=== PATIENT | male | born 1980 | race Caucasian/White ===

== ENCOUNTER 2016-12-01 13:23 | Emergency (ER) | payer SELFPAY ==
[~2016-12-01] VITALS: Ht 180.3 cm; Wt 79.5 kg
[2016-12-01 13:29] VITALS: BP 109/73; PULSE 109; RESP 18; TEMP 98.6; O2SAT 98
[2016-12-01] MEDS ORDERED: TETANUS/DIPHTHERIA TOXOID ADULT 0.5 ML VIAL IM ONE (13:45)
[2016-12-01] MEDS ORDERED: HYDROmorphone HCL PF 1 MG/ML VIAL IM ONE (13:45)
[2016-12-01] MEDS ORDERED: LIDOCAINE HCL 2% 20 ML VIAL INFIL ONE (13:45)
--- NOTE | 2016-12-01 13:49 | PD ---
HPI Chief Complaint: Injury Time Seen by Provider: 13:34 Travel History International Travel<30 days: No Contact w/Intl Traveler<30days: No Traveled to known affect area: No History of Present Illness HPI This is a 36-year-old male who presents to the emergency department having been chain sawing edges when his pants got caught in the chain saw and he sustained a laceration to his left leg. Patient doesn't remember when his last tetanus shot is. He has moderate severity pain in the left leg, constant, with no numbness or weakness. No other injuries. [facility] Past Medical History Medical History: Denies Significant Hx Tetanus Vaccination: > 5 Years Influenza Vaccination: No Past Surgical History Surgical History: No Previous Surgery Social History Alcohol Use: No Tobacco Use: Yes (12/04 PPD) Substance Use: No Allergies-Medications (Allergen,Severity, Reaction): Coded Allergies: No Known Allergies (Unverified , 12/01/16) Reported Meds & Prescriptions Reported Meds & Active Scripts Active No Active Prescriptions or Reported Medications Review of Systems Except as stated in HPI: all other systems reviewed are Neg Physical Exam Narrative GENERAL: Well-appearing, no acute distress, nontoxic SKIN: 10 cm deep laceration along the lateral aspect of the left thigh through the fascia with some laceration to the underlying muscle belly. No vascular structures visualized. Vascular: 2+ left DP pulse with normal capillary refill. HEAD: Atraumatic. Normocephalic. ENT: No nasal bleeding or discharge. Moist mucous membranes MUSCULOSKELETAL: No obvious deformities. No clubbing. No cyanosis. No edema. NEUROLOGICAL: Awake and alert. No obvious cranial nerve deficits. Motor grossly within normal limits. Normal speech. PSYCHIATRIC: Appropriate mood and affect; insight and judgment normal. Data Data Last Documented VS Vital Signs Date Time Temp Pulse Resp B/P Pulse Ox O2 Delivery O2 Flow Rate FiO2 12/01/16 13:29 98.6 109 18 109/73 98 Orders Tetanus/Diphtheria Tox Adult (Tetanus/Di (12/01/16 13:45) Lidocaine 2% Inj (Xylocaine 2% Inj) (12/01/16 13:45) Hydromorphone Pf Inj (Dilaudid Pf Inj) (12/01/16 13:45) Lidocaine 2% Inj (Xylocaine 2% Inj) (12/01/16 14:00) MDM Medical Decision Making Medical Screen Exam Complete: Yes Emergency Medical Condition: Yes Differential Diagnosis Laceration, vascular injury Narrative Course This is a 34-year-old male who presents to the emergency department with a laceration to his left leg following a chainsaw injury. He was given a tetanus shot. The wound was copiously irrigated and repaired by me. It was a complex repair. Patient tolerated the procedure well. He will be discharged home with wound care and antibiotics given. Procedures Procedure Narrative LACERATION LOCATION: Lateral left thigh LENGTH: 10 cm NUMBER OF STITCHES/SHEYLA: 16 REPAIR: The area of the laceration was sterilely draped. The laceration was infiltrated with 10 cc of 1% lidocaine the wound was copiously irrigated and explored without evidence of foreign body, tendon injury or neurovascular injury. The wound was closed using 10 4-0 Vicryl sutures and 6 3-0 nylon vertical mattress sutures. This was a 3 layer repair. A sterile dressing was applied. The patient was advised to keep the dressing clean and dry. Patient tolerated the procedure well. Diagnosis Primary Impression: Contact with chainsaw as cause of accidental injury Additional Impression: Laceration Patient Instructions: General Instructions Additional Instructions: If you develop fevers, redness, swelling, or discharge from your wound return to the emergency room. Keep your wound dry for 24 hours. After that time, wash gently with warm soap and water. Do not use peroxide. Do not soak in baths or go swimming. Have your sutures removed in 14 days. Med/Other Pt SpecificInfo: Prescription(s) given Scripts Oxycodone-Acetaminophen (Percocet)5-325 mg Tab1 Tab PO Q6H PRN (PAIN) #12 TAB Ref 0 Prov:Kathryn Ortiz MD 12/01/16 Cephalexin (Keflex)500 Mg Cyt097 Mg PO Q12H 7 Days Ref 0 Prov:Kathryn Ortiz MD 12/01/16 Disposition: 01 DISCHARGE HOME Condition: Stable Kathryn Ortiz MD Dec 01, 2016 13:49
[2016-12-01] MEDS ORDERED: LIDOCAINE HCL 2% 50 ML VIAL INFIL ONE (14:00)
[2016-12-01] MEDS ORDERED: CEPH-460 PO (15:04)
[2016-12-01] MEDS ORDERED: PERC5TAB12 PO (15:04)
[2016-12-01 15:25] VITALS: BP 146/76
== END 2016-12-01 15:38 | disposition home or self-care (01) ==
LOC: PHED 13:23
DX: S71.112A Laceration without foreign body, left thigh, initial encounter (principal); F17.200 Nicotine dependence, unspecified, uncomplicated; Z23 Encounter for immunization; W29.3XXA Contact with powered garden and outdoor hand tools and machinery, initial encounter
CPT/HCPCS: 13121; 13122; 90471; 90714; 96372; 99283; E0113; J1170

== ENCOUNTER 2017-06-13 15:06 | Inpatient (IN) | payer SELFPAY ==
[~2017-06-13] VITALS: Ht 180.3 cm; Wt 82.0 kg
[~2017-06-13 15:06] MED LIST: CEPH-460 PO; PERC5TAB12 PO
[2017-06-13 15:25] VITALS: BP 120/67; PULSE 134; RESP 20; TEMP 99.6; O2SAT 94
--- NOTE | 2017-06-13 15:36 | PD ---
HPI Chief Complaint: Alcohol/Drug Intoxication Time Seen by Provider: 15:23 Travel History International Travel<30 days: No Contact w/Intl Traveler<30days: No Traveled to known affect area: No History of Present Illness HPI This patient had been clean of his heroin addiction for while but relapsed today and injected himself with heroin. His parents noticed that he was acting out and called paramedics who brought him in. He did not require any Narcan. He did not have syncope. He denies intent to harm himself. No suicidal thought or depression. At this point he feels a bit drowsy but otherwise well. No alleviating factors. Duration 3 hours. Severity is moderate PFSH Past Medical History ?: Not Social History Alcohol Use: No Tobacco Use: Yes (12/04 PPD) Substance Use: No Allergies-Medications (Allergen,Severity, Reaction): Coded Allergies: No Known Allergies (Unverified , 12/01/16) Reported Meds & Prescriptions Reported Meds & Active Scripts Active Percocet (Oxycodone-Acetaminophen) 5-325 mg Tab 1 Tab PO Q6H PRN Keflex (Cephalexin) 500 Mg Cap 500 Mg PO Q12H 7 Days Review of Systems General / Constitutional: No: Fever Eyes: No: Visual changes HENT: No: Headaches Cardiovascular: Positive: Tachycardia, No: Chest Pain or Discomfort Respiratory: No: Shortness of Breath Gastrointestinal: No: Abdominal Pain Genitourinary: No: Dysuria Musculoskeletal: No: Pain Skin: No Rash Neurologic: Positive: Change in Mentation, No: Weakness Psychiatric: Positive: Substance Abuse, No: Depression Endocrine: No: Polydipsia Hematologic/Lymphatic: No: Easy Bruising Physical Exam Narrative GENERAL: Well-nourished, well-developed patient in no apparent distress. SKIN: Focused skin assessment reveals no rash and nodules. Skin is Warm and dry. HEAD: Atraumatic. Normocephalic. EYES: Pupils equal and round. No scleral icterus. No injection or drainage. ENT: No nasal bleeding or discharge. Mucous membranes pink and moist. NECK: Trachea midline. No JVD. CARDIOVASCULAR: Regular rate and rhythm. No murmur appreciated. Tachycardic 125 RESPIRATORY: No accessory muscle use. Clear to auscultation. Breath sounds equal bilaterally. GASTROINTESTINAL: Abdomen soft, non-tender, nondistended. Hepatic and splenic margins not palpable. MUSCULOSKELETAL: No obvious deformities. No clubbing. No cyanosis. No edema. NEUROLOGICAL: Awake and alert. No obvious cranial nerve deficits. Motor grossly within normal limits. Normal speech. PSYCHIATRIC: Appropriate mood and affect; insight and judgment poor . Data Data Last Documented VS Vital Signs Date Time Temp Pulse Resp B/P (MAP) Pulse Ox O2 Delivery O2 Flow Rate FiO2 06/13/17 17:51 99.0 90 19 107/59 (75) 95 Room Air Orders Orders Iv Access Insert/Monitor (06/13/17 15:31) Complete Blood Count With Diff (06/13/17 15:31) Basic Metabolic Panel (Bmp) (06/13/17 15:31) Sodium Chlor 0.9% 1000 Ml Inj (Ns 1000 M (06/13/17 15:45) [employer] / Telemetry HERMINIA.Q8H (06/13/17 15:33) Blood Culture (06/13/17 17:28) Diet Regular Basic (06/13/17 Dinner) Admit Order (Ed Use Only) (06/13/17 17:56) Labs Laboratory Tests Test 06/13/17 15:00 06/13/17 15:20 White Blood Count 17.1 TH/MM3 Red Blood Count 4.32 MIL/MM3 Hemoglobin 12.8 GM/DL Hematocrit 38.1 % Mean Corpuscular Volume 88.2 FL Mean Corpuscular Hemoglobin 29.6 PG Mean Corpuscular Hemoglobin Concent 33.5 % Red Cell Distribution Width 13.2 % Platelet Count 437 TH/MM3 Mean Platelet Volume 7.7 FL Neutrophils (%) (Auto) 78.1 % Lymphocytes (%) (Auto) 12.7 % Monocytes (%) (Auto) 7.9 % Eosinophils (%) (Auto) 0.8 % Basophils (%) (Auto) 0.5 % Neutrophils # (Auto) 13.4 TH/MM3 Lymphocytes # (Auto) 2.2 TH/MM3 Monocytes # (Auto) 1.3 TH/MM3 Eosinophils # (Auto) 0.1 TH/MM3 Basophils # (Auto) 0.1 TH/MM3 CBC Comment DIFF FINAL Differential Comment Blood Urea Nitrogen 11 MG/DL Creatinine 2.08 MG/DL Random Glucose 119 MG/DL Calcium Level 8.9 MG/DL Sodium Level 139 MEQ/L Potassium Level 3.6 MEQ/L Chloride Level 103 MEQ/L Carbon Dioxide Level 27.0 MEQ/L Anion Gap 9 MEQ/L Estimat Glomerular Filtration Rate 37 ML/MIN MDM Medical Decision Making Medical Screen Exam Complete: Yes Emergency Medical Condition: Yes Medical Record Reviewed: Yes Differential Diagnosis IV drug abuse, overdose, dehydration Narrative Course I have reviewed the patient's electronic medical record. Patient was seen here once before for a laceration to the left leg Patient has poor/challenging IV access I placed a left external jugular IV I gave him a liter of normal saline IV bolus Extended cardiac monitoring shows sinus tachycardia in the 120s with normal blood pressure CBC shows leukocytosis of 17,000 Metabolic profile reasonably normal I have concern for endocarditis/sepsis in this patient with IV drug abuse and tachycardia and low-grade temperature and leukocytosis. I'm going to get him admitted to rule out these things. 2 sets of blood cultures ordered I will discuss with medical residents Diagnosis Primary Impression: Fever Qualified Codes: R50.9 - Fever, unspecified Additional Impressions: Tachycardia Leukocytosis Qualified Codes: D72.829 - Elevated white blood cell count, unspecified IV drug abuse Admitting Information Admitting Physician Requests: Admit Hernán Santacruz MD Jun 13, 2017 15:36
[2017-06-13] MEDS ORDERED: SODIUM CHLOR 0.9% 1000 ML INJ 1,000 ML IV ONE (15:45)
[2017-06-13 16:21] LABS: AUTOMATED NEUTROPHIL # 13.4 TH/MM3 (1.8-7.7); BASOPHIL # 0.1 TH/MM3 (0-0.2); BASOPHIL % 0.5 % (0.0-2.0); EOSINOPHIL # 0.1 TH/MM3 (0-0.4); EOSINOPHIL % 0.8 % (0.0-4.0); HEMATOCRIT 38.1 % (39.0-51.0); HEMO FLAGS DIFF FINAL; LYMPH % 12.7 % (9.0-44.0); LYMPHOCYTE # 2.2 TH/MM3 (1.0-4.8); MEAN CELL VOLUME 88.2 FL (80.0-100.0); MEAN CORPUSCULAR HEMOGLOBIN 29.6 PG (27.0-34.0); MEAN CORPUSCULAR HGB CONC 33.5 % (32.0-36.0); MONO % 7.9 % (0.0-8.0); NEUT % 78.1 % (16.0-70.0); PLATELET COUNT 437 TH/MM3 (150-450); RED BLOOD COUNT 4.32 MIL/MM3 (4.50-5.90); RED CELL DISTRIBUTION WIDTH 13.2 % (11.6-17.2); WHITE BLOOD COUNT 17.1 TH/MM3 (4.0-11.0)
[2017-06-13 16:36] LABS: POTASSIUM 3.6 MEQ/L (3.5-5.1)
[2017-06-13 17:51] VITALS: BP 107/59; PULSE 90; RESP 19; TEMP 99; O2SAT 95
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
[2017-06-13] MEDS ORDERED: NALOXONE HCL 0.4 MG/ML AMP IV PRN (19:00)
[2017-06-13] MEDS ORDERED: LORazepam 1 MG TAB PO PRN (19:00)
[2017-06-13] MEDS ORDERED: cloNIDine HCL 0.1 MG TAB PO PRN (19:00)
[2017-06-13] MEDS: MULTIVITAMINS/MINERALS THERAPEUTIC TAB PO SCH (19:00)
[2017-06-13] MEDS ORDERED: LORazepam 2 MG TAB PO PRN (19:00)
[2017-06-13] MEDS ORDERED: ONDANSETRON HCL 4 MG/2 ML VIAL IVP PRN (19:00)
[2017-06-13] MEDS ORDERED: ACETAMINOPHEN 325 MG TAB PO PRN (19:00)
[2017-06-13] MEDS ORDERED: FLUMAZENIL 0.5 MG/5 ML VIAL IV PUSH PRN (19:00)
[2017-06-13 19:34] LABS: ALCOHOL LESS THAN 3 MG/DL (0-5)
[2017-06-13 20:00] VITALS: BP 117/63; PULSE 77; RESP 17; O2SAT 95
[2017-06-13] MEDS: SODIUM CHLOR 0.9% 1000 ML INJ 1,000 ML IV SCH (20:03)
[2017-06-13] MEDS: THIAMINE HCL 100 MG TAB PO SCH (20:03)
[2017-06-13] MEDS: FOLIC ACID 1 MG TAB PO SCH (20:03)
[2017-06-13] MEDS: HEPARIN SODIUM - SQ 10,000 UNITS/ML VIAL SQ SCH (20:04)
[2017-06-13] MEDS ORDERED: PROMETHAZINE INJ 25 MG/ML VIAL IM PRN (20:15)
[2017-06-13] MEDS ORDERED: LOPERAMIDE HCL 2 MG CAP PO PRN (20:15)
[2017-06-13 21:23] VITALS: BP 116/59; PULSE 62; RESP 19; TEMP 98.4; O2SAT 96
[2017-06-14] VITALS (9 sets, daily range): BP systolic 107–116; BP diastolic 56–63; PULSE 47–68; RESP 18; TEMP 97.6–98.2; O2SAT 97–99
[2017-06-14] MEDS: SODIUM CHLOR 0.9% 1000 ML INJ 1,000 ML IV SCH ×3 (03:26→18:48)
[2017-06-14] MEDS: HEPARIN SODIUM - SQ 10,000 UNITS/ML VIAL SQ SCH ×3 (03:26→19:00)
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
--- NOTE | 2017-06-14 08:17 | HHI.DCPOC ---
Discharge Care Plan Diagnosis: (1) Heroin overdose (2) Observation for suspected infectious endocarditis (3) Sepsis (4) JUANCARLOS (acute kidney injury) Goals to Promote Your Health * To prevent worsening of your condition and complications * To maintain your health at the optimal level Directions to Meet Your Goals Take your medications as prescribed Follow your dietary instruction Follow activity as directed Keep your appointments as scheduled Take your immunizations and boosters as scheduled If your symptoms worsen call your PCP, if no PCP go to Urgent Care Center or Emergency Room Smoking is Dangerous to Your Health. Avoid second hand smoke Call the 24-hour hour crisis hotline for domestic abuse at Elise Fraire MD, R3 Jun 14, 2017 08:17
--- NOTE | 2017-06-14 08:21 | PD.PSY.CON ---
Provisional Diagnosis Admission Date Jun 13, 2017 at 17:58 Loris I. Substance-induced mood disorder, Opiate use disorder Loris II. Deferred Loris III. Heroine overdose Loris IV. Recently released from intermediate, unemployed Loris V. 56 History of Present Illness Service Psychiatry Consult Requested By Reason for Consult Potential suicidal attempt Primary Care Physician No Primary Care Physician HPI The patient is a 36-year-old man, domiciled with parents, unemployed, single, without any previous psychiatric history, no previous suicidal attempts , no previous psychiatric hospitalizations, opiate use disorder, IV daily Dilaudid and heroin, history of rehabilitation programs in the past, he was in methadone 30 mg in the past, no significant medical history, that presents with an acute IV heroine overdose in the setting of tachycardia, leukocytosis, and elevated creatinine (baseline creatinine unknown). Clinical signs on admission are concerning for early sepsis and endocarditis. He would be admitted to rule out endocarditis and acute withdrawal symptoms will be managed supportively. Patient consulted to psychiatry for potential overdose and management of anxiety. Psychiatric evaluation today patient is calm, cooperative and pleasant. Patient is seen In the observational area of the ER. Patient explains that he was just released from intermediate couple days ago "my tolerance for opiates was very low and use heroine with the intention to feel better, but now with the intention to ". Patient explains that once he was released from intermediate, he had a lot of plans, he wanted to find a job, to quit using drugs, if possible to start a methadone program again. Patient says that he wants to reform his life and he doesn't want to go back to intermediate. He appreciates what his parents are doing for him "I want to mess again". At this moment patient reports good mood, he denies anhedonia, he denies hopelessness, he denies helplessness, he denies worthlessness, he denies decreased concentration, he denies decreased energy, he denies suicidal and homicidal ideation. He denies visual and auditory hallucinations. He denies history, no gross cognitive impairment present, no attention deficit. Patient is logical, coherent and relevant, no paranoia, no delusions of reference, no agitation or aggressive behavior present. At this moment the patient does not report symptoms of heroin withdrawal. Patient denies the use of other illicit drugs, he denies the use of alcohol.. Review of Systems Constitutional: DENIES: Diaphoretic episodes, Fatigue, Fever, Weight gain, Weight loss, Chills, Dizziness, Change in appetite, Night Sweats Endocrine: DENIES: Heat/cold intolerance, Polydipsia, Polyuria, Polyphagia Eyes: DENIES: Blurred vision, Diplopia, Eye inflammation, Eye pain, Vision loss , Photosensitivity, Double Vision Ears, nose, mouth, throat: DENIES: Tinnitus, Hearing loss, Vertigo, Nasal discharge, Oral lesions, Throat pain, Hoarseness, Ear Pain, Running Nose, Epistaxis, Sinus Pain, Toothache, Odynophagia Cardiovascular: DENIES: Chest pain, Palpitations, Syncope, Dyspnea on Exertion , PND, Lower Extremity Edema, Orthopnea, Claudication Gastrointestinal: DENIES: Abdominal pain, Black stools, Bloody stools, Constipation, Diarrhea, Nausea, Vomiting, Difficulty Swallowing, Anorexia Musculoskeletal: DENIES: Joint pain, Muscle aches, Stiffness, Joint Swelling, Back pain, Neck pain Integumentary: DENIES: Abnormal pigmentation, Nail changes, Pruritus, Rash Hematologic/lymphatic: DENIES: Bruising, Lymphadenopathy Immunologic/allergic: DENIES: Eczema, Urticaria Neurologic: DENIES: Abnormal gait, Headache, Localized weakness, Paresthesias, Seizures, Speech Problems, Tremor, Poor Balance Psychiatric: DENIES: Anxiety, Confusion, Mood changes, Depression, Hallucinations, Agitation, Suicidal Ideation, Homicidal Ideation, Delusions Past Family Social History Coded Allergies: No Known Allergies (Unverified , 12/01/16) Discontinued Scripts Oxycodone-Acetaminophen (Percocet) 5-325 mg Tab, 1 TAB PO Q6H Y for PAIN, #12 TAB 0 Refills Prov:Kathryn Ortiz MD 12/01/16 Cephalexin (Keflex) 500 Mg Cap, 500 MG PO Q12H for Infection for 7 Days, CAP 0 Refills Prov:Kathryn Ortiz MD 12/01/16 Current Medications Medications (Trade) Dose Ordered Sig/Inge Route Start Time Stop Time Status Last Admin Sodium Chloride 1,000 ml @ 125 mls/hr Q8H IV 06/13/17 18:48 06/14/17 03:26 (Tylenol) 650 mg Q4H PRN PO 06/13/17 19:00 (Heparin Inj) 5,000 units Q8H SQ 06/13/17 19:00 06/14/17 03:26 (Narcan Inj) 0.4 mg UNSCH PRN IV 06/13/17 19:00 (Romazicon Inj) 0.2 mg Q1M PRN IV PUSH 06/13/17 19:00 (Ativan) 1 mg Q4H PRN PO 06/13/17 19:00 (Ativan) 2 mg Q2H PRN PO 06/13/17 19:00 (Folate) 1 mg DAILY PO 06/13/17 19:00 06/18/17 18:59 06/13/17 20:03 (Vitamin B1) 100 mg DAILY PO 06/13/17 19:00 06/13/17 20:03 (Theragran M Tab) 1 tab DAILY PO 06/13/17 19:00 06/18/17 18:59 (Catapres) 0.1 mg Q6H PRN PO 06/13/17 19:00 (Phenergan Inj) 25 mg Q6H PRN IM 06/13/17 20:15 (Imodium) 2 mg Q4H PRN PO 06/13/17 20:15 Family History Patient denies family psychiatric history Social History Patient was born and raised in [facility], he lives with his parents in the time,, he has no kids, unemployed, recently released from [facility] after 2 months incarceration due to "drugs"patient's highest level of education is high school. Patient's Strengths (min. 2) Verbal communication, contemplation state, good motivation Physical Exam A physical exam, no tremors, no EPS, no stiffness, no withdrawal symptoms, no gait disturbances, no skin visible irvin, no pupillaries abnormalities Vital Signs Vital Signs Date Time Temp Pulse Resp B/P (MAP) Pulse Ox O2 Delivery O2 Flow Rate FiO2 06/14/17 07:49 48 06/14/17 03:16 98.2 18 111/56 (74) 97 06/13/17 20:00 Room Air Lab Results Test 06/13/17 15:00 06/13/17 15:20 06/14/17 00:25 White Blood Count 17.1 TH/MM3 Red Blood Count 4.32 MIL/MM3 Hemoglobin 12.8 GM/DL Hematocrit 38.1 % Mean Corpuscular Volume 88.2 FL Mean Corpuscular Hemoglobin 29.6 PG Mean Corpuscular Hemoglobin Concent 33.5 % Red Cell Distribution Width 13.2 % Platelet Count 437 TH/MM3 Mean Platelet Volume 7.7 FL Neutrophils (%) (Auto) 78.1 % Lymphocytes (%) (Auto) 12.7 % Monocytes (%) (Auto) 7.9 % Eosinophils (%) (Auto) 0.8 % Basophils (%) (Auto) 0.5 % Neutrophils # (Auto) 13.4 TH/MM3 Lymphocytes # (Auto) 2.2 TH/MM3 Monocytes # (Auto) 1.3 TH/MM3 Eosinophils # (Auto) 0.1 TH/MM3 Basophils # (Auto) 0.1 TH/MM3 CBC Comment DIFF FINAL Differential Comment Blood Urea Nitrogen 11 MG/DL Creatinine 2.08 MG/DL Random Glucose 119 MG/DL Calcium Level 8.9 MG/DL Sodium Level 139 MEQ/L Potassium Level 3.6 MEQ/L Chloride Level 103 MEQ/L Carbon Dioxide Level 27.0 MEQ/L Anion Gap 9 MEQ/L Estimat Glomerular Filtration Rate 37 ML/MIN Phosphorus Level 4.0 MG/DL Magnesium Level 2.0 MG/DL Salicylates Level LESS THAN 1.7 MG/DL Acetaminophen Level LESS THAN 2.0 MCG/ML Ethyl Alcohol Level LESS THAN 3 MG/DL Lactic Acid Level 1.8 mmol/L Date/Time Source Procedure Growth Status 06/13/17 17:50 Blood Peripheral Aerobic Blood Culture Pending Received 06/13/17 17:50 Blood Peripheral Anaerobic Blood Culture Pending Received Mental Status Examination Appearance man, regular street clothing, good hygiene, age appearing, he is calm , cooperative and pleasant Speech: Unremarkable Orientation: x3 Memory: Unremarkable Thought Process: Logical Thought Content: Unremarkable Language Good grammar, good diction, Fund of Knowledge Adequate for level of education Hallucination Type: None Suicidal Ideation: No Previous Suicide Attempts: No Homicidal Ideation: No Previous Homicide Attempts: No Insight: Good Affect: Good Mood: Appropriate Motor Activity: Normal gait Assessment & Plan Problem List: (1) Opioid abuse with intoxication ICD Codes: F11.129 - Opioid abuse with intoxication, unspecified Assessment & Plan: On psychiatric evaluation today patient is found calm, cooperative, logical, coherent and relevant. Patient does not present any evidence of acute, significant or concerning symptomatology of depression, anxiety, presley or psychosis. The patient denies suicidal and homicidal ideation , he denies visual and auditory hallucinations. He denies symptomatology of withdrawal at this moment. Patient seems to be motivated to engage in a methadone program or might consider other are tentative or rehabilitation. He has a for insight of his drug use and is in contemplation state. Extensive psychoeducation, supportive motivation provided. He does not meet criteria for psychiatric admission at this moment. Would treat opiate withdrawal symptomatically: Clonidine 0.01-0.02 every 8 hours when necessary irritability/ autonomic instability, Benadryl 25-50 mg by mouth every 8 hours for lacrimation and skin pruritus. Zofran/Reglan for nausea, loperamide for diarrhea. Might consider a low dose of long-acting benzodiazepine, such as clonazepam 0.5 mg 3 times a day, to control anxiety. Gabapentin 300 mg 3 times a day is another healthy alternatives. Consult appreciated. Assessment & Plan Estimated LOS: Kaushik Raman MD Jun 14, 2017 08:20
[2017-06-14] MEDS: MULTIVITAMINS/MINERALS THERAPEUTIC TAB PO SCH (08:33)
[2017-06-14] MEDS: FOLIC ACID 1 MG TAB PO SCH (08:33)
[2017-06-14] MEDS: THIAMINE HCL 100 MG TAB PO SCH (08:33)
[2017-06-14 13:24] LABS: BLOOD, URINE TRACE (NEG); COMMENT (UR) CULT NOT INDICATED; CULTURE IF INDICATED CULT NOT INDICATED; GLUCOSE,URINE NEG (NEG); KETONE, URINE NEG (NEG); NITRITE,URINE NEG (NEG); PH, URINE 5.5 (5.0-8.5); URINE COLOR YELLOW (YELLW/STRAW)
--- NOTE | 2017-06-14 16:25 | ECHRPT ---
Indication: Assess for vegetations CONCLUSIONS Technically very difficult study making assessment of left ventricular function and wall motion very suboptimal. Ejection fraction is very roughly estimated at 30-40% with possible global hypokinesis. Wall thickness is measured at the upper limits of normal. Upper normal left ventricular size. There is trace tricuspid valve regurgitation. The estimated pulmonary arterial pressure is 23 mmHg. BP: 111 / 56 HR: 68 Rhythm: Other MEASUREMENTS (Male / Female) Normal Values Technical Quality:Very difficult study 2D ECHO LV Diastolic Diameter PLAX 4.8 cm 4.2 - 5.9 / 3.9 - 5.3 cm LV Systolic Diameter PLAX 4.3 cm IVS Diastolic Thickness 1.2 cm 0.6 - 1.0 / 0.6 - 0.9 cm LVPW Diastolic Thickness 1.2 cm 0.6 - 1.0 / 0.6 - 0.9 cm LV Relative Wall Thickness 0.5 LVOT Diameter 1.9 cm LA Systolic Diameter LX 3.2 cm 3.0 - 4.0 / 2.7 - 3.8 cm M-MODE Aortic Root Diameter MM 3.5 cm AV Cusp Separation MM 2.5 cm DOPPLER AV Peak Velocity 153.0 cm/s AV Peak Gradient 9.4 mmHg LVOT Peak Velocity 101.0 cm/s LVOT Peak Gradient 4.1 mmHg AV Area Cont Eq pk 1.9 cm MR Peak Velocity 233.0 cm/s MR Peak Gradient 21.7 mmHg Mitral E Point Velocity 106.0 cm/s Mitral A Point Velocity 25.2 cm/s Mitral E to A Ratio 4.2 LV E' Lateral Velocity 19.7 cm/s Mitral E to LV E' Lateral Ratio 5.4 LV E' Septal Velocity 14.4 cm/s Mitral E to LV E' Septal Ratio 7.4 TR Peak Velocity 213.0 cm/s TR Peak Gradient 18.1 mmHg PV Peak Velocity 85.5 cm/s PV Peak Gradient 2.9 mmHg FINDINGS LEFT VENTRICLE Technically very difficult study making assessment of left ventricular function and wall motion very suboptimal. Ejection fraction is very roughly estimated at 30-40% with possible global hypokinesis. Wall thickness is measured at the upper limits of normal. Upper normal left ventricular size. RIGHT VENTRICLE Normal right ventricular size and systolic function. LEFT ATRIUM The left atrial size is normal. RIGHT ATRIUM The right atrial size is normal. ATRIAL SEPTUM Normal atrial septal thickness without atrial level shunting by limited color doppler interrogation. AORTA The aortic root and proximal ascending aorta are normal in size on limited imaging. MITRAL VALVE Structurally normal mitral valve. No mitral valve stenosis or regurgitation. AORTIC VALVE Trileaflet aortic valve. No aortic valve stenosis or regurgitation. TRICUSPID VALVE There is trace tricuspid valve regurgitation. The estimated pulmonary arterial pressure is 23 mmHg. PULMONARY VALVE The pulmonary valve is not well visualized. VESSELS The inferior vena cava is normal in size. PERICARDIUM No pericardial effusion. Arcadio Price MD (Electronically Signed) Final Date:14 June 2017 16:24
[2017-06-14 17:34] LABS: HEMATOCRIT 37.2 % (39.0-51.0); MEAN CELL VOLUME 88.4 FL (80.0-100.0); MEAN CORPUSCULAR HEMOGLOBIN 29.4 PG (27.0-34.0); MEAN CORPUSCULAR HGB CONC 33.2 % (32.0-36.0); PLATELET COUNT 372 TH/MM3 (150-450); RED BLOOD COUNT 4.21 MIL/MM3 (4.50-5.90); RED CELL DISTRIBUTION WIDTH 13.1 % (11.6-17.2); REVIEW FLAG FINAL; WHITE BLOOD COUNT 6.4 TH/MM3 (4.0-11.0)
[2017-06-14 17:51] LABS: ALT (GPT) 46 U/L (12-78); ANION GAP 6 MEQ/L (5-15); AST (GOT) 37 U/L (15-37); BICARBONATE 30.3 MEQ/L (21.0-32.0); BLOOD UREA NITROGEN 12 MG/DL (7-18); CHLORIDE 105 MEQ/L (98-107); GLOMERULAR FILTRATION RATE 80 ML/MIN (>89); SODIUM (NA) 141 MEQ/L (136-145)
[2017-06-14 17:57] LABS: ALKALINE PHOSPHATASE 59 U/L (45-117); TOTAL BILIRUBIN ADULT 0.3 MG/DL (0.2-1.0)
--- NOTE | 2017-06-15 13:31 | HHI.FPPN ---
Addendum to progress note ADDENDUM Reason for addendum: Additonal documentation Additional information Attempted to call patient multiple times at phone number ([phone]) that is documented on the EMR, to no avail. Notably, the patient's next of kin has the same phone number listed. Patient needs to be notified of his EF in the range of 30-40% with possible global hypokinesis. Consequently, he needs to be started on an OSCAR inhibitor and a beta chuck. He will also require a repeat BMP in 1 week after starting an OSCAR inhibitor. Patient will need to establish with cardiology for future follow-up. He can be referred to cardiology by his primary care provider. Considering that he is self-pay, if he does not have a primary care provider, he can contact [facility] in [place] which is a [facility] ([facility]) that offers a sliding fee discount based on documented income. Debbie Soto MD R2 Jun 15, 2017 13:31
--- NOTE | 2017-06-17 12:08 | HHI.PR ---
Addendum to Inpatient Note Addendum Reason: Additional Documentation Additional Information Patient unable to be contacted by telephone to discuss results of his echocardiogram. Mailing a certified letter requesting that the patient call us to discuss the results. Patient needs to be notified of his EF in the range of 30-40% with possible global hypokinesis. Consequently, he needs to be started on an OSCAR inhibitor and a beta chuck. He will also require a repeat BMP in 1 week after starting an OSCAR inhibitor. Patient will need to establish with cardiology for future follow-up. Grant Angeles MD R1 Jun 17, 2017 12:08
[2017-06-17 14:52] LABS: BATH SALTS (MDPV) UR NEG (NEG); ECSTASY (MDMA) UR NEG (NEG); HEROIN (6-ACETYLMORPHINE) UR NEG (NEG); K2 SPICE UR NEG (NEG); OBMETHADONE UR NEG (NEG); PHENCYCLIDINE URINE NEG (NEG)
[2017-06-17 14:53] LABS: GABAPENTIN UR NEG (NEG); HYDROMORPHONE U NEG (NEG)
== END 2017-06-14 19:31 | disposition home or self-care (01) | DRG 917 ==
LOC: NEPD 15:06 → NEDA 17:58 → NEPFCDU 20:59
PROVIDERS: ADMIT Family Medicine; ATTEND Family Medicine
DX: T40.1X1A Poisoning by heroin, accidental (unintentional), initial encounter (principal); A41.9 Sepsis, unspecified organism; N17.9 Acute kidney failure, unspecified; F11.10 Opioid abuse, uncomplicated; R00.0 Tachycardia, unspecified; F19.10 Other psychoactive substance abuse, uncomplicated; Y92.009 Unspecified place in unspecified non-institutional (private) residence as the place of occurrence of the external cause; F17.210 Nicotine dependence, cigarettes, uncomplicated; F41.9 Anxiety disorder, unspecified
CPT/HCPCS: 80048; 80053; 80307; 81001; 83605; 83735; 84100; 85025; 85027; 87040; 93306; 96360; G0481; J1644; J7030

== ENCOUNTER 2017-07-04 20:16 | Emergency (ER) | payer OTHER ==
[~2017-07-04] VITALS: Ht 177.8 cm; Wt 70.0 kg
[2017-07-04 20:30] VITALS: BP 132/69; PULSE 130; RESP 18; TEMP 99; O2SAT 97
[2017-07-04] MEDS ORDERED: SODIUM CHLOR 0.9% 1000 ML INJ 1,000 ML IV ONE (20:30)
--- NOTE | 2017-07-04 21:12 | PD ---
HPI Chief Complaint: Seizure Time Seen by Provider: 20:30 Travel History International Travel<30 days: No Contact w/Intl Traveler<30days: No Traveled to known affect area: No History of Present Illness HPI 36-year-old male that presents to the ED for evaluation of possible seizure. Patient has a history of substance abuse and states that he injected heroine about 2 hours before being arrested. Patient was arrested by police for unknown reason. Patient reportedly had a seizure when ambulance showed up. Ambulance states that patient was slightly confused when evaluated with a GCS of 14 but now he has been back to baseline. He denies any history of seizures. He denies trying to kill himself or having any homicidal or suicidal ideation. Per patient he did this recreationally. Per patient he injected "20 dollars "worth of heroin. Unclear as to the amount. Denies any fevers chills or sweats. No chest pain or shortness of breath. States having some mild neck pain and was put in a cervical collar because of this. Per police report he had some foam in his mouth. Otherwise no other symptoms. He voices no complaints her anxiety. No medical issues. No fevers chills or sweats. PFSH Past Medical History Medical History: Denies Significant Hx Blood Disorders: No Cancer: No Cardiovascular Problems: No Chemotherapy: No Diminished Hearing: No Endocrine: No Genitourinary: No Immune Disorder: No Musculoskeletal: No Neurologic: No Psychiatric: No Reproductive: No Respiratory: No Radiation Therapy: No Tetanus Vaccination: < 5 Years Past Surgical History Surgical History: No Previous Surgery Other Surgery: Yes (tonsils) Social History Alcohol Use: No Tobacco Use: Yes (1/2) Substance Use: Yes (heroin and cociane 2 or 3 x week) Allergies-Medications (Allergen,Severity, Reaction): Coded Allergies: No Known Allergies (Unverified , 12/01/16) Reported Meds & Prescriptions Reported Meds & Active Scripts Active No Active Prescriptions or Reported Medications Review of Systems Except as stated in HPI: all other systems reviewed are Neg Physical Exam Narrative GENERAL: SKIN: Warm and dry. HEAD: Atraumatic. Normocephalic. EYES: Pupils equal and round. No scleral icterus. No injection or drainage. ENT: No nasal bleeding or discharge. Mucous membranes pink and moist. Tongue is midline. No uvula deviation. NECK: Trachea midline. No JVD. CARDIOVASCULAR: Regular rate and rhythm. No murmurs, S3, S4. RESPIRATORY: No accessory muscle use. Clear to auscultation. Breath sounds equal bilaterally. GASTROINTESTINAL: Abdomen soft, non-tender, nondistended. Hepatic and splenic margins not palpable. MUSCULOSKELETAL: Extremities without clubbing, cyanosis, or edema. No obvious deformities. Full ROM of the upper and lower extremities bilaterally. 2+ pulses bilaterally. Mild cervical pain in touch on the musculature. No obvious spine tenderness bilaterally. NEUROLOGICAL: Awake and alert. No obvious cranial nerve deficits. Motor grossly within normal limits. Five out of 5 muscle strength in the arms and legs. Normal speech. PSYCHIATRIC: Appropriate mood and affect; insight and judgment normal. Data Data Last Documented VS Vital Signs Date Time Temp Pulse Resp B/P (MAP) Pulse Ox O2 Delivery O2 Flow Rate FiO2 07/04/17 22:01 94 18 110/64 (79) 99 Room Air 07/04/17 20:30 99.0 Orders Orders Complete Blood Count With Diff (07/04/17 20:30) Alcohol (Ethanol) (07/04/17 20:30) Drug Screen, Random Urine (07/04/17 20:30) Ct Brain W/O Iv Contrast(Rout) (07/04/17 ) Blood Glucose (07/04/17 20:30) Ecg Monitoring (07/04/17 20:30) Iv Access Insert/Monitor (07/04/17 20:30) Oximetry (07/04/17 20:30) Comprehensive Metabolic Panel (07/04/17 20:30) Sodium Chlor 0.9% 1000 Ml Inj (Ns 1000 M (07/04/17 20:30) Ct Cerv Spine W/O Contrast (07/04/17 ) Salicylates (Aspirin) (07/04/17 20:35) Tylenol (Acetaminophen) (07/04/17 20:35) Labs Laboratory Tests Test 07/04/17 21:35 White Blood Count 11.0 TH/MM3 Red Blood Count 5.01 MIL/MM3 Hemoglobin 14.8 GM/DL Hematocrit 44.2 % Mean Corpuscular Volume 88.2 FL Mean Corpuscular Hemoglobin 29.6 PG Mean Corpuscular Hemoglobin Concent 33.6 % Red Cell Distribution Width 14.4 % Platelet Count 270 TH/MM3 Mean Platelet Volume 8.5 FL Neutrophils (%) (Auto) 73.5 % Lymphocytes (%) (Auto) 15.4 % Monocytes (%) (Auto) 9.2 % Eosinophils (%) (Auto) 1.3 % Basophils (%) (Auto) 0.6 % Neutrophils # (Auto) 8.1 TH/MM3 Lymphocytes # (Auto) 1.7 TH/MM3 Monocytes # (Auto) 1.0 TH/MM3 Eosinophils # (Auto) 0.1 TH/MM3 Basophils # (Auto) 0.1 TH/MM3 CBC Comment DIFF FINAL Differential Comment MDM Medical Decision Making Medical Screen Exam Complete: Yes Emergency Medical Condition: Yes Medical Record Reviewed: Yes Interpretation(s) CBC & BMP Diagram 07/04/17 21:[address] cervical spine showed mild herniations Differential Diagnosis Seizure versus heroin overdose versus substance abuse versus head injury versus neck injury versus opiate abuse Narrative Course 36-year-old male that presents to the ED for evaluation of possible seizure. Patient was properly examined and was found to have signs and symptoms of unclear etiology with possible seizure. Likely substance related. Labs and imaging were ordered. Labs and imaging still pending at the writing of this note. Case will be signed out to night provider pending disposition. Scripts No Active Prescriptions or Reported Meds Hang Herrmann Jul 04, 2017 21:12
--- NOTE | 2017-07-04 21:51 | RADRPT ---
EXAM DATE/TIME: 07/04/2017 20:35 [facility] COMPARISON: No previous studies available for comparison. INDICATIONS : Cephalgia and neck pain today. RADIATION DOSE: 56.35 CTDIvol (mGy) MEDICAL HISTORY : None SURGICAL HISTORY : Tonsillectomy. ENCOUNTER: Initial ACUITY: 1 day PAIN SCALE: 5/10 LOCATION: Bilateral head TECHNIQUE: Multiple contiguous axial images were obtained of the head. Using automated exposure control and adj ustment of the mA and/or kV according to patient size, radiation dose was kept as low as reasonably a chievable to obtain optimal diagnostic quality images. DICOM format image data is available electro nically for review and comparison. FINDINGS: CEREBRUM: The ventricles are normal for age. No evidence of midline shift, mass lesion, hemorrhage or acute in farction. No extra-axial fluid collections are seen. POSTERIOR FOSSA: The cerebellum and brainstem are intact. The 4th ventricle is midline. The cerebellopontine angle i s unremarkable. EXTRACRANIAL: The visualized portion of the orbits is intact. SKULL: The calvaria is intact. No evidence of skull fracture. CONCLUSION: Normal examination. Spenser Laguna MD on July 04, 2017 at 21:48 Board Certified Radiologist. This report was verified electronically.
[2017-07-04 22:01] VITALS: BP 110/64; PULSE 94; RESP 18; O2SAT 99
--- NOTE | 2017-07-04 22:05 | RADRPT ---
EXAM DATE/TIME: 07/04/2017 20:37 [facility] COMPARISON: No previous studies available for comparison. INDICATIONS : Cephalgia and neck pain today. RADIATION DOSE: 30.68 CTDIvol (mGy) MEDICAL HISTORY : None SURGICAL HISTORY : Tonsillectomy. ENCOUNTER: Initial ACUITY: 1 day PAIN SCALE: 5/10 LOCATION: Bilateral neck TECHNIQUE: Volumetric scanning of the cervical spine was performed. Multiplanar reconstructions in the sagittal, coronal and oblique axial planes were performed. Using automated exposure control and adjustment o f the mA and/or kV according to patient size, radiation dose was kept as low as reasonably achievable to obtain optimal diagnostic quality images. DICOM format image data is available electronically f or review and comparison. FINDINGS: VERTEBRAE: Normal vertebral body height. ALIGNMENT: There is reversal of the normal C-spine lordosis. No evidence of subluxation. C2-C3: The bony spinal canal is normal in size. No evidence of disc bulge or herniation. The neural forami na are bilaterally patent. C3-C4: The bony spinal canal is normal in size. No evidence of disc bulge or herniation. The neural forami na are bilaterally patent. C4-C5: There is a mild to moderate central disc protrusion. Some degree of superior extrusion needs to be co nsidered posterior to the C4 vertebral body. The bony spinal canal is normal in size. The neural f oramina are bilaterally patent. C5-C6: The bony spinal canal is normal in size. No evidence of disc bulge or herniation. The neural forami na are bilaterally patent. C6-C7: The disc demonstrates decreased height. There is minimal posterior bulging and osteophytic ridging ca using a mild impression on the thecal sac. There is uncovertebral hypertrophy. The neural foramina a re bilaterally patent. C7-T1: The bony spinal canal is normal in size. No evidence of disc bulge or herniation. The neural forami na are bilaterally patent. CONCLUSION: 1. Mild to moderate disc protrusion at the C4-C5 a with some degree of superiorly directed extrusion suspected. 2. Mild disc bulging and osteophytic ridging at the C6-C7 level causing a mild compression on the the dwayne sac. 3. Reversal of the normal C-spine lordosis. Spenser Laguna MD on July 04, 2017 at 21:59 Board Certified Radiologist. This report was verified electronically.
[2017-07-04 22:21] LABS: AUTOMATED NEUTROPHIL # 8.1 TH/MM3 (1.8-7.7); BASOPHIL # 0.1 TH/MM3 (0-0.2); BASOPHIL % 0.6 % (0.0-2.0); EOSINOPHIL # 0.1 TH/MM3 (0-0.4); EOSINOPHIL % 1.3 % (0.0-4.0); HEMATOCRIT 44.2 % (39.0-51.0); HEMO FLAGS DIFF FINAL; LYMPH % 15.4 % (9.0-44.0); LYMPHOCYTE # 1.7 TH/MM3 (1.0-4.8); MEAN CELL VOLUME 88.2 FL (80.0-100.0); MEAN CORPUSCULAR HEMOGLOBIN 29.6 PG (27.0-34.0); MEAN CORPUSCULAR HGB CONC 33.6 % (32.0-36.0); MONO % 9.2 % (0.0-8.0); NEUT % 73.5 % (16.0-70.0); PLATELET COUNT 270 TH/MM3 (150-450); RED BLOOD COUNT 5.01 MIL/MM3 (4.50-5.90); RED CELL DISTRIBUTION WIDTH 14.4 % (11.6-17.2)
[2017-07-04 22:46] LABS: ANION GAP 7 MEQ/L (5-15); BICARBONATE 27.8 MEQ/L (21.0-32.0); BLOOD UREA NITROGEN 12 MG/DL (7-18); CHLORIDE 104 MEQ/L (98-107); GLOMERULAR FILTRATION RATE 80 ML/MIN (>89); POTASSIUM 3.8 MEQ/L (3.5-5.1); SODIUM (NA) 139 MEQ/L (136-145)
[2017-07-04 22:54] LABS: ALKALINE PHOSPHATASE 212 U/L (45-117); ALT (GPT) 1834 U/L (12-78); AST (GOT) 1586 U/L (15-37); TOTAL BILIRUBIN ADULT 2.3 MG/DL (0.2-1.0)
[2017-07-04 22:55] VITALS: BP 123/63; PULSE 77; RESP 18; O2SAT 99
[2017-07-04 23:25] LABS: ALCOHOL LESS THAN 3 MG/DL (0-5)
--- NOTE | 2017-07-04 23:52 | PD ---
Physical Exam Date Seen by Provider: Jul 04, 2017 Narrative This patient was here for medical clearance prior to going to detention. The patient had a seizure associated with the abuse of heroin. He is now awake and alert and has no complaints. He denies the use of alcohol. He denies any previous problems with his liver. He denies any abdominal pain. He has not been running a fever. Data Data Last Documented VS Vital Signs Date Time Temp Pulse Resp B/P (MAP) Pulse Ox O2 Delivery O2 Flow Rate FiO2 07/04/17 22:55 77 18 123/63 (83) 99 Room Air 07/04/17 20:30 99.0 Orders Orders Complete Blood Count With Diff (07/04/17 20:30) Alcohol (Ethanol) (07/04/17 20:30) Drug Screen, Random Urine (07/04/17 20:30) Ct Brain W/O Iv Contrast(Rout) (07/04/17 ) Blood Glucose (07/04/17 20:30) Ecg Monitoring (07/04/17 20:30) Iv Access Insert/Monitor (07/04/17 20:30) Oximetry (07/04/17 20:30) Comprehensive Metabolic Panel (07/04/17 20:30) Sodium Chlor 0.9% 1000 Ml Inj (Ns 1000 M (07/04/17 20:30) Ct Cerv Spine W/O Contrast (07/04/17 ) Salicylates (Aspirin) (07/04/17 20:35) Tylenol (Acetaminophen) (07/04/17 20:35) Labs Laboratory Tests Test 07/04/17 21:35 White Blood Count 11.0 TH/MM3 Red Blood Count 5.01 MIL/MM3 Hemoglobin 14.8 GM/DL Hematocrit 44.2 % Mean Corpuscular Volume 88.2 FL Mean Corpuscular Hemoglobin 29.6 PG Mean Corpuscular Hemoglobin Concent 33.6 % Red Cell Distribution Width 14.4 % Platelet Count 270 TH/MM3 Mean Platelet Volume 8.5 FL Neutrophils (%) (Auto) 73.5 % Lymphocytes (%) (Auto) 15.4 % Monocytes (%) (Auto) 9.2 % Eosinophils (%) (Auto) 1.3 % Basophils (%) (Auto) 0.6 % Neutrophils # (Auto) 8.1 TH/MM3 Lymphocytes # (Auto) 1.7 TH/MM3 Monocytes # (Auto) 1.0 TH/MM3 Eosinophils # (Auto) 0.1 TH/MM3 Basophils # (Auto) 0.1 TH/MM3 CBC Comment DIFF FINAL Differential Comment Blood Urea Nitrogen 12 MG/DL Creatinine 1.05 MG/DL Random Glucose 115 MG/DL Total Protein 7.9 GM/DL Albumin 4.0 GM/DL Calcium Level 9.3 MG/DL Alkaline Phosphatase 212 U/L Aspartate Amino Transf (AST/SGOT) 1586 U/L Alanine Aminotransferase (ALT/SGPT) 1834 U/L Total Bilirubin 2.3 MG/DL Sodium Level 139 MEQ/L Potassium Level 3.8 MEQ/L Chloride Level 104 MEQ/L Carbon Dioxide Level 27.8 MEQ/L Anion Gap 7 MEQ/L Estimat Glomerular Filtration Rate 80 ML/MIN Ethyl Alcohol Level LESS THAN 3 MG/DL MDM Supervised Visit with YULIA: Yes Narrative Course I, Dr. Prabhakar, have reviewed the advance practice practitioner's documentation and am in agreement, met with the patient face to face, made the diagnosis, and the medical decision making was done by me. *My assessment and Findings: Skin color is normal. Sclera are anicteric. Abdomen is soft and nontender. No hepatosplenomegaly. CBC & BMP Diagram 07/04/17 21:35 Total Protein 7.9, Albumin 4.0, Calcium Level 9.3, Alkaline Phosphatase 212 H, Aspartate Amino Transf (AST/SGOT) 1586 H, Alanine Aminotransferase (ALT/SGPT) 1834 H, Total Bilirubin 2.3 H The patient does have elevated LFTs. However, this can be evaluated further as an outpatient. Diagnosis Primary Impression: Heroin abuse Additional Impressions: Seizure Transaminasemia Scripts No Active Prescriptions or Reported Meds Disposition: [address] [employer] ENF[employer]CEM[employer] Condition: Stable Kathie Prabhakar MD Jul 04, 2017 23:52
[2017-07-04 23:53] VITALS: BP 112/62
== END 2017-07-05 00:05 ==
LOC: NEDAMB 20:16
DX: F11.10 Opioid abuse, uncomplicated (principal); R56.9 Unspecified convulsions; R74.0 Nonspecific elevation of levels of transaminase and lactic acid dehydrogenase [LDH]; M54.2 Cervicalgia; R79.89 Other specified abnormal findings of blood chemistry; F17.200 Nicotine dependence, unspecified, uncomplicated
CPT/HCPCS: 70450; 72125; 80053; 80307; 85025; 96360; 99285; J7030